=== PATIENT | male | born 1985 | race Native Hawaiian/Other Pacific Islander ===

== ENCOUNTER 2018-07-07 12:52 | Emergency (ER) | payer OTHER ==
[~2018-07-07] VITALS: Ht 167.6 cm; Wt 94.3 kg
[2018-07-07 12:57] VITALS: TEMP 97.3
[2018-07-07 13:43] VITALS: BP 142/81
== END 2018-07-07 13:43 | disposition home or self-care (01) ==
LOC: ED 12:52
PROC: 0HQFXZZ Repair Right Hand Skin, External Approach (ICD-10-PCS; principal; 2018-07-07)
DX: S61.212A Laceration without foreign body of right middle finger without damage to nail, initial encounter (principal); S61.214A Laceration without foreign body of right ring finger without damage to nail, initial encounter; W37.8XXA Explosion and rupture of other pressurized tire, pipe or hose, initial encounter
CPT/HCPCS: 90471; 90715; 99282

== ENCOUNTER 2019-10-07 09:37 | Emergency (ER) | payer OTHER ==
[~2019-10-07] VITALS: Ht 167.6 cm; Wt 94.3 kg
[2019-10-07 09:43] VITALS: BP 163/117; TEMP 97.5
== END 2019-10-07 11:09 | disposition home or self-care (01) ==
LOC: ED 09:37
PROC: 0JQK0ZZ Repair Left Hand Subcutaneous Tissue and Fascia, Open Approach (ICD-10-PCS; principal; 2019-10-07)
DX: S61.412A Laceration without foreign body of left hand, initial encounter (principal); W27.0XXA Contact with workbench tool, initial encounter; Y92.89 Other specified places as the place of occurrence of the external cause
CPT/HCPCS: 99282; J7040